=== PATIENT | male | born 1990 | race Caucasian/White ===

== ENCOUNTER 2021-01-09 12:35 | Outpatient (CLI) | payer BC, SELFPAY ==
--- NOTE | 2021-01-09 18:06 | P.PCNPFT_ITS ---
PFT Interpretation This is a pulmonary function test with pre and post-bronchodilator spirometry, plethysmography and diffusing capacity. The test was performed and results interpreted in accordance with the 2019 and 2005 ATS/ERS Task Force guidelines respectively using the Global Lung Function Initiative-2012 reference equations. Patient demonstrated good effort and c ooperation. Reproducibility criteria were met. The quality of the pre bronchodilator spirometry maneuver was Grade A and post bronchodilator spirometry maneuver was Grade A. Findings: Spirometry: The contour the inspiratory and expiratory flow tracing are normal. The pre bronchodilator FVC is 5.38 L, 98% predicted. The pre bronchodilator FEV1 is 4.78 L, 106% predicted. The FEV1: FVC ratio is 89%. The post bronchodilator FVC is 5.46 L, representing 1% increase. The post bronchodilator FEV1 is 4.91 L, representing a 3% increase. Plethysmography: The total lung capacity is 6.25 L, 90% predicted. The functional residual capacity is 2.36 L, 70% predicted. The residual volume is 0.87 L, 54% predicted. Diffusion capacity: The absolute diffusion capacity is 29.5, 83% predicted. The diffusing capacity corrected for alveolar volume is 4.98, 96% predicted. Impression: The spirometry is normal without evidence of an obstructive abnormality. There is no significant improvement after inhaling a single dose of albuterol. The lung volumes are normal. The diffusing capacity is normal. There are no prior studies for comparison
== END 2021-01-09 12:36 | disposition home or self-care (01) ==
PROVIDERS: PCP Internal Medicine; Visit Provider Internal Medicine Pulmonary Disease
DX: R06.00 Dyspnea, unspecified (principal); R06.02 Shortness of breath
CPT/HCPCS: 94060; 94726; 94729

== ENCOUNTER 2021-12-16 14:23 | Emergency (ER) | payer OTHER, SELFPAY ==
[2021-12-16 14:32] VITALS: BP 116/72; PULSE 71; RESP 18; TEMP 36.6; O2SAT 100
--- NOTE | 2021-12-16 14:56 | ED.ABDPAIN ---
HPI - Abdominal Pain General Chief Complaint: Abdominal Pain Stated Complaint: Abdominal pain Time Seen by Provider: 12/16/21 15:00 Source: patient, RN notes reviewed and old records reviewed Mode of arrival: ambulatory Limitations: no limitations History of Present Illness HPI narrative: 31 year old male presents to [facility] care with complaints of pain to the epigastric area for the past 2 weeks which he describes as dull ache with increase in his discomfort for the past 2 days with pain stated to be ache at 3/10 the greatest pain level. He has normal bowel sounds with no McBurney point tenderness or any CVA tenderness on examination.Patient reports that he took one dose of omeprazole with no improvement in his symptoms. Reports that he had a UGI in the past and had been on Protonix for GERD but has not been on that for about 18 months. He saw a safety consultant also and was told that they thought it was related to his asthma and put him on Symbicort prn but has not had any asthma flares recently.Patient states that he has a lot of gas denies any acute belching. Patient denies any fevers, no nausea, vomiting or diarrhea. MD elicited complaint: abdominal pain Onset (ago): week(s) (2) Pain Consistency: constant Severity: mild Pain scale (0-10): 3 Quality: aching Radiation: epigastric (lower) Exacerbating factors: nothing Relieving factors: nothing Treatments prior to arrival: other (has taken omeprazole once) Related Data Allergies Allergy/AdvReac Type Severity Reaction Status Date / Time bee pollen Allergy Unknown Unknown Verified 10/23/21 13:22 Review of Systems Review of Systems: CONSTITUTIONAL: Denies fever, chills, or sweats. EYES: Denies visual changes, redness, or discharge. ENT: Denies rhinorrhea, congestion, sore throat, or otalgia. CARDIOVASCULAR: Denies chest pain, palpitations, or edema. RESPIRATORY: Denies acute cough or dyspnea. GASTROINTESTINAL:epigastric and mid abdominal pain, denies any nausea, vomiting, or diarrhea. GENITOURINARY: Denies dysuria or hematuria. SKIN: Denies rash or itching. MUSCULOSKELETAL: Denies back pain, joint pain, or myalgia. NEUROLOGIC: Denies headache, numbness, or weakness. PSYCHIATRIC: Denies anxiety or depression. All systems reviewed & are unremarkable except as noted in HPI and below PMFSH Past Medical History Medical History (Updated 12/16/21 @ 21:41 by Kate Steven NP) Allergic rhinitis Asthma GERD (gastroesophageal reflux disease) SOB (shortness of breath) Staph infection right side of abdomen Surgical History Surgical History (Updated 12/16/21 @ 21:41 by Kate Steven NP) History of hand surgery repair of fracture with ORIF with pins Family History Family History Mother Family history of malignant neoplasm of breast in first degree relative Father Diabetes mellitus Grandparent Heart disease Cerebrovascular accident Other Family history of arthritis Family history of cardiovascular disease Social History Social History (Updated 12/16/21 @ 21:39 by Kate Steven NP) Smoking status: Never smoker Alcohol intake: current Alcohol use details: social Substance use: never Living arrangements: with family Gender identity (if verbalized by the patient): Male Comments At time of signature, agree with nursing past medical, surgical, social and family history. There is no relevant family history pertinent to the presenting complaint Exam Narrative: GENERAL: Well-appearing, well-nourished, and in no acute distress. HEAD: Normocephalic, atraumatic. EYES: PERRLA and EOMI. ENT: Nares clear, no rhinorrhea or epistaxis. Mucous membranes moist.TM's normal with good light reflex, throat pink with no lesions ot exudates, tonsils not swollen or enlaged NECK: Supple.no lymphadenopathy CHEST: Clear to auscultation. No respiratory distress.no wheezing or any tachypnea,SAO2 100% on room a
== END 2021-12-16 15:32 | disposition home or self-care (01) ==
PROVIDERS: Emergency Provider Registered Nurse; PCP Internal Medicine
DX: R10.13 Epigastric pain (principal); K31.9 Disease of stomach and duodenum, unspecified; J45.909 Unspecified asthma, uncomplicated; K21.9 Gastro-esophageal reflux disease without esophagitis; Z86.19 Personal history of other infectious and parasitic diseases
CPT/HCPCS: 99213; G0463